=== PATIENT | female | born 1995 | race Hispanic/Latino ===

== ENCOUNTER 2024-10-12 12:59 | Emergency (ER) | payer OTHER ==
[~2024-10-12] VITALS: Ht 167.6 cm; Wt 151.1 kg
[2024-10-12] MEDS ORDERED: CYCLOBENZAPRINE5 MG PO (14:50)
[2024-10-12] MEDS ORDERED: TRAMADOL HCL50 MG PO (14:50)
[2024-10-12] MEDS ORDERED: IBUPROFEN800 MG PO (14:51)
[2024-10-12] MEDS ORDERED: KETOROLAC TROMETHAMINE 60 MG/2 ML VIAL IM ONE (15:15)
[2024-10-12] MEDS ORDERED: HYDROCODONE BIT/ACETAMINOPHEN 5/325 MG 1 TAB HOME.PACK PO ONE (16:00)
[2024-10-12] MEDS ORDERED: GABAPENTIN 300 MG CAP PO ONE (16:00)
[2024-10-12] MEDS ORDERED: NEURONTIN300 MG PO (16:05)
[2024-10-12] MEDS ORDERED: HYDROCODON-ACE1 EA10 PO (16:09)
[2024-10-12 16:15] VITALS: BP 148/93
== END 2024-10-12 16:15 | disposition home or self-care (01) ==
LOC: ED 12:59
DX: M54.16 Radiculopathy, lumbar region (principal); E11.9 Type 2 diabetes mellitus without complications
CPT/HCPCS: 96372; 99283; A9270; J1885